=== PATIENT | male | born 1960 | race Caucasian/White ===

== ENCOUNTER 2018-03-07 08:55 | Day surgery (SDC) | payer MEDICAID ==
[2018-03-07] MEDS ORDERED: HYDR12.5 PO (09:21)
[2018-03-07] MEDS ORDERED: GABA100C PO (09:21)
[2018-03-07] MEDS ORDERED: NAPR-56 PO (09:21)
[2018-03-07] MEDS ORDERED: LISI30TA4 PO (09:21)
[2018-03-07 09:41] VITALS: BP 134/96
[2018-03-07 11:40] VITALS: BP 147/97
[2018-03-07] MEDS ORDERED: normal saline 1000ml 1,000 ML IV SCH (11:44)
[2018-03-07 11:45] VITALS: BP 146/90
[2018-03-07 12:00] VITALS: BP 143/97
[2018-03-07 12:15] VITALS: BP 148/102
[2018-03-07 12:30] VITALS: BP 151/102
== END 2018-03-07 12:40 | disposition home or self-care (01) ==
LOC: SSTAY O 08:55
PROVIDERS: ATTEND Radiology Diagnostic Radiology
DX: C79.89 Secondary malignant neoplasm of other specified sites (principal); C77.0 Secondary and unspecified malignant neoplasm of lymph nodes of head, face and neck; C80.1 Malignant (primary) neoplasm, unspecified; I10 Essential (primary) hypertension; J43.9 Emphysema, unspecified; F17.210 Nicotine dependence, cigarettes, uncomplicated; F32.9 Major depressive disorder, single episode, unspecified; K21.9 Gastro-esophageal reflux disease without esophagitis; Z98.890 Other specified postprocedural states; Z79.899 Other long term (current) drug therapy
CPT/HCPCS: 10022; 76942; A6449; J7030